=== PATIENT | male | born 1970 | race Two or more races ===

== ENCOUNTER 2018-08-26 05:26 | Emergency (ER) | payer SELFPAY ==
[~2018-08-26] VITALS: Ht 175.3 cm; Wt 94.3 kg
[2018-08-26] MEDS ORDERED: SODIUM CHLORIDE 0.9% 1,000 ML IVB ONE (06:29)
[2018-08-26] MEDS ORDERED: KETOROLAC TROMETH 15 mg/ml 1ML VL IV ONE (06:30)
[2018-08-26] MEDS ORDERED: MORPHINE SULFATE 4 MG/ML SYR/VIAL IV ONE (06:30)
[2018-08-26] MEDS ORDERED: ONDANSETRON HCL 4 MG/2 ML VIAL IV ONE (06:30)
[2018-08-26 06:44] LABS: Urine Bacteria NONE SEEN /hpf (None Seen); Urine Blood 2+ /uL (Negative); Urine Specific Gravity 1.026 (1.001-1.035); Urine WBC 1 /hpf (0 - 3)
[2018-08-26 07:12] LABS: Basophils # (auto) 0 uL; Basophils % (auto) 0.3 % (0.0-2.0); Eosinophils # (auto) 0.1 uL; Eosinophils % (auto) 0.8 % (0.0-7.0); Hematocrit 41.6 % (41.0-53.0); Hemoglobin 14.3 g/dL (13.5-17.5); Lymphocytes # (auto) 1.1 uL; Lymphocytes % (auto) 15.5 % (10.0-50.0); Mean Corpuscular Hemoglobin 28.7 pg (28.0-32.0); Mean Corpuscular Hgb Conc. 34.5 g/dL (32.0-36.0); Mean Corpuscular Volume 83.4 fL (80.0-100.0); Monocytes # (auto) 0.4 uL; Monocytes % (auto) 4.8 % (0.0-12.0); Neutrophils # (auto) 5.8 uL; Neutrophils % (auto) 78.6 % (37.0-80.0); Platelet Count (auto) 201 10^3/uL (140-450); Red Blood Cells 4.99 10^6/uL (4.5-5.90); Red Cell Distribution Width 13.4 % (11.8-14.3); White Blood Cell 7.4 10^3/uL (4.4-10.8)
[2018-08-26 07:28] LABS: Potassium 3.4 mmol/L (3.5-5.1)
[2018-08-26 07:29] LABS: Albumin 3.4 g/dL (3.4-5.0); BUN/Creatinine Ratio 20.2; Calcium 7.3 mg/dL (8.5-10.1)
[2018-08-26 07:31] LABS: Bilirubin, Total 0.4 mg/dL (0.2-1.0); Total Protein 6.3 g/dL (6.4-8.2)
[2018-08-26 08:17] VITALS: BP 149/87
== END 2018-08-26 08:52 | disposition home or self-care (01) ==
LOC: EDBD 05:26 → ER 05:26
DX: N20.0 Calculus of kidney (principal)
CPT/HCPCS: 36415; 74176; 80053; 81001; 83690; 85025; 94761; 96374; 96375; 99284; J1885; J2270; J2405; J7030

== ENCOUNTER 2023-03-09 19:25 | Emergency (ER) | payer OTHER ==
[~2023-03-09] VITALS: Ht 177.8 cm; Wt 100.0 kg
[2023-03-09 19:26] VITALS: BP 130/99; PULSE 64; RESP 18; O2SAT 96
[2023-03-10] MEDS ORDERED: ACETAMINOPHEN 325 MG TAB PO ONE (03:30)
== END 2023-03-10 07:57 | disposition home or self-care (01) ==
LOC: ER 19:25
DX: T59.0X1A Toxic effect of nitrogen oxides, accidental (unintentional), initial encounter (principal); R51.9 Headache, unspecified; Y92.89 Other specified places as the place of occurrence of the external cause